=== PATIENT | male | born 1990 | race Caucasian/White ===

== ENCOUNTER 2025-07-17 20:01 | Emergency (ER) | payer MEDICAID, OTHER ==
[~2025-07-17] VITALS: Ht 170.2 cm; Wt 64.9 kg
[2025-07-17 20:24] VITALS: BP 124/75; TEMP 98.4; O2SAT 100
[2025-07-17] MEDS ORDERED: AMOX-430 PO (20:54)
== END 2025-07-17 21:08 | disposition home or self-care (01) ==
LOC: ER 20:19
DX: L30.9 Dermatitis, unspecified (principal); Z90.49 Acquired absence of other specified parts of digestive tract